=== PATIENT | male | born 1955 | race Caucasian/White ===

== ENCOUNTER 2021-01-22 10:36 | Outpatient (CLI) | payer OTHER | END 2021-01-22 10:37 | disposition home or self-care (01) | LOC: TBSIIMAG 10:36 | PROVIDERS: ATTEND Neurological Surgery | DX: M48.061 Spinal stenosis, lumbar region without neurogenic claudication (principal); M47.816 Spondylosis without myelopathy or radiculopathy, lumbar region | CPT/HCPCS: 72100 ==